=== PATIENT | female | born 1990 | race Caucasian/White ===

== ENCOUNTER 2017-04-13 01:35 | Emergency (ER) | payer MEDICAID, OTHER ==
[2017-04-13 01:43] VITALS: BP 134/77
--- NOTE | 2017-04-13 03:41 | ER Document Report ---
ED General - General Chief Complaint: Flank Pain Stated Complaint: ABDOMINAL PAIN Time Seen by Provider: 04/13/17 03:27 Mode of Arrival: Ambulatory Information source: Patient TRAVEL OUTSIDE OF THE [place] IN LAST 30 DAYS: No - HPI Notes: 27-year-old female approximately 7 weeks gestation by dates of February 23 presents with minimal vaginal spotting tonight but some left flank pain for approximately 1 week that radiates to her left upper leg. She has no distal numbness or tingling. She does have a little bit of pelvic pressure that feels somewhat like her PCOS. No fever. No current dysuria but being treated with Macrobid for a urinary tract infection. Pain has been mild. She has passed no clots or tissue - Related Data Allergies/Adverse Reactions: gadoteridol [From Prohance] Allergy (Mild, Verified 08/30/13 15:36) Hives ketorolac [From Toradol] Allergy (Verified 08/15/16 17:15) Hives Past Medical History - Social History Smoking Status: Never Smoker Family History: Reviewed & Not Pertinent Patient has suicidal ideation: No Patient has homicidal ideation: No Renal/ Medical History: Denies: Hx Peritoneal Dialysis Skin Medical History: Reports Hx MRSA - Immunizations Hx Diphtheria, Pertussis, Tetanus Vaccination: Yes Review of Systems - Review of Systems -: Yes All other systems reviewed and negative Physical Exam - Vital signs Vitals: Temp Pulse Resp BP Pulse Ox 98.1 F 77 16 134/77 H 98 04/13/17 01:39 04/13/17 01:39 04/13/17 01:39 04/13/17 01:39 04/13/17 01:39 - Notes Notes: GENERAL: VS as per nursing doc. Well-appearing, well-nourished and in no acute distress. HEAD: Atraumatic, normocephalic. EYES: Pupils equal round and reactive to light, extraocular movements intact, sclera anicteric, no conjunctival injection or discharge. ENT: Nares patent, oropharynx clear without exudates, moist mucous membranes. NECK: Normal range of motion, supple without lymphadenopathy. LUNGS: Breath sounds clear to auscultation bilaterally and equal. No wheezes rales or rhonchi. HEART: Regular rate and rhythm without murmurs. ABDOMEN: Soft, minimal tenderness in the suprapubic region. No guarding, no rebound. No masses appreciated. No Bessemer sign. BACK: Mild left CVA tenderness. EXTREMITIES: Normal range of motion, no calf tenderness, no edema. NEUROLOGICAL: Cranial nerves grossly intact. Normal speech. Normal sensory and motor exams. No gross cerebellar abnormalities. PSYCH: Normal mood, normal affect. SKIN: Warm, dry, normal turgor, no lesions noted. Course - Re-evaluation Re-evalutation: 04/13/17 07:01 Discussed with patient findings and threatened miscarriage risks. She will get follow-up with her PCP understands no tampons or anything else in her vagina. - Vital Signs Vital signs: Temp Pulse Resp BP Pulse Ox 98.1 F 77 16 134/77 H 98 04/13/17 01:39 04/13/17 01:39 04/13/17 01:39 04/13/17 01:39 04/13/17 01:39 - Laboratory Result Diagrams: 04/13/17 06:19 Laboratory results interpreted by me: 04/13/17 04/13/17 02:15 06:19 Hct 35.8 L Urine Blood SMALL H - Diagnostic Exam Pelvis Type of test: Ultrasound - 6 week gestation with small subchorionic hemorrhage Discharge - Discharge Clinical Impression: Threatened in first trimester Condition: Good Disposition: HOME, SELF-CARE Instructions: Threatened Miscarriage ([facility]) Referrals: ARNOLDO FIGUEROA PA-C [Primary Care Provider] - Follow up in 3-5 days (Follow-up with your [facility] [employer]OR in the next week. Return for worsening or concern.)
[2017-04-13 04:03] LABS: APPEARANCE,URINE SLIGHTLY-CLOUDY; BILIRUBIN,URINE NEGATIVE (NEGATIVE); GLUCOSE, URINE NEGATIVE (NEGATIVE); KETONES,URINE NEGATIVE (NEGATIVE); LEUKOCYTE ESTERASE,URINE NEGATIVE (NEGATIVE); NITRITE,URINE NEGATIVE (NEGATIVE); PROTEIN,URINE NEGATIVE (NEGATIVE); URINE SPECIFIC GRAVITY 1.024; UROBILINOGEN,URINE NEGATIVE mg/dL (<2.0)
[2017-04-13 06:33] LABS: ABSOLUTE BASOPHILS # (AUTO) 0.1 10^3/uL (0.0-0.2); ABSOLUTE EOSINOPHILS # (AUTO) 0.2 10^3/uL (0.0-0.6); ABSOLUTE LYMPHOCYTES (AUTO) 3.2 10^3/uL (0.5-4.7); ABSOLUTE MONOCYTES (AUTO) 0.5 10^3/uL (0.1-1.4); ABSOLUTE NEUT (AUTO) 6.3 10^3/uL (1.7-8.2); EOSINOPHILS % (AUTO) 2.1 % (0-6); HEMATOCRIT 35.8 % (36.0-47.0); HEMOGLOBIN 12.2 g/dL (12.0-15.5); HGB HCT DIFFERENCE 0.8; LYMPHOCYTES % (AUTO) 30.9 % (13-45); MEAN CORPUSCULAR HEMOGLOBIN 28.7 pg (27.0-33.4); MEAN CORPUSCULAR HGB CONC 34.1 g/dL (32.0-36.0); MEAN CORPUSCULAR VOLUME 84 fl (80-97); MONOCYTES % (AUTO) 4.8 % (3-13); RED BLOOD COUNT 4.25 10^6/uL (3.72-5.28); RED CELL DISTRIBUTION WIDTH 12.6 % (11.5-14.0); SEGMENTED NEUTROPHILS % (AUTO) 61.2 % (42-78); WHITE BLOOD COUNT 10.2 10^3/uL (4.0-10.5)
== END 2017-04-13 07:15 | disposition home or self-care (01) ==
LOC: ER 01:35
DX: O20.0 Threatened abortion (principal); R10.9 Unspecified abdominal pain; Z3A.01 Less than 8 weeks gestation of pregnancy; Z86.14 Personal history of Methicillin resistant Staphylococcus aureus infection
CPT/HCPCS: 36415; 76817; 81001; 84702; 85025; 86900; 86901; 99284

== ENCOUNTER → 2017-04-16 | Outpatient (CLI) | payer MEDICAID | LOC: OD 16:35 | PROVIDERS: ATTEND Physician Assistant | DX: O20.0 Threatened abortion (principal) | CPT/HCPCS: 36415; 84702 ==

== ENCOUNTER → 2017-04-17 | Outpatient (CLI) | payer MEDICAID ==
--- NOTE | 2017-04-17 15:42 | RADIOLOGY REPORT (SQ) ---
EXAM DESCRIPTION: U/S [id number] TRNABD 1GES W/ODOP COMPLETED DATE/TIME: 04/17/2017 3:29 pm REASON FOR STUDY: THREATENED O20.0 THREATENED COMPARISON: 04/13/2017 TECHNIQUE: Transabdominal static and realtime grayscale images acquired of the pelvis. Additional se lected spectral and color Doppler images recorded. All images stored on PACs. C,341 LIMITATIONS: None. FINDINGS: FETUS: Living intrauterine . EGA: 7 weeks 0 days LORY: 12/04/2017 FHR: 126 beats per minute. SUBCHORIONIC BLEED: Yes.Next SIZE OF BLEED: Less than 5 mm UTERUS: No masses. No anomalies. CERVICAL LENGTH: 3.1 cm Closed. RIGHT ADNEXA: Normal ovary with normal vascular flow. No adnexal free fluid. No adnexal masses. LEFT ADNEXA: Normal ovary with normal vascular flow. No adnexal free fluid. No adnexal masses. FREE FLUID: None. OTHER: No other significant finding. IMPRESSION: LIVING INTRAUTERINE . EGA 7 weeks 0 days. Decrease in size of subchorionic hemorrhage. Trimester of : First - 0 to 13 weeks. TECHNICAL DOCUMENTATION: JOB ID: [id number] [employer]- All Rights Reserved
== END ==
LOC: RAD 14:18
PROVIDERS: ATTEND Physician Assistant
DX: O20.0 Threatened abortion (principal)
CPT/HCPCS: 76801